=== PATIENT | female | born 1960 | race Caucasian/White ===

== ENCOUNTER 2016-10-01 22:07 | Emergency (ER) | payer OTHER ==
[~2016-10-01] VITALS: Ht 165.1 cm; Wt 96.0 kg
[~2016-10-01 22:07] MED LIST: ASPIRIN325 MG PO; ATENOLOL25 M1 PO; CARDIZEM120 MG PO; CIPRO500 MG PO; COLACE100 MG PO; ESTRADIOL0.5 MG PO; FLAGYL500 MG PO; FLEXERIL10 MG PO; GLUCOPHAGE500 MG PO; HYDROCODON-ACE1 EAC7 PO; LISINOPRIL20 MG PO; LITE COAT ASPI325 M1 PO; METOPROLOL SUCC25 MG PO; NORCO 10/3251 TABLET PO; NORCO 5/3251 TABLET PO; PANTOPRAZOLE SO40 MG PO; PRILOSEC40 MG PO; PRINIVIL20 MG PO; ZESTRIL,PRINIVI20 MG PO; ZOFRAN4 MG PO
[2016-10-01] MEDS ORDERED: METFORMIN HCL500 MG PO (22:42)
[2016-10-02 00:05] VITALS: BP 141/90
[2016-10-02] MEDS ORDERED: FLEXERIL10 MG PO (00:12)
[2016-10-02] MEDS ORDERED: LO-DOSE ASPIRIN81 M1 PO (21:08)
[2016-10-02] MEDS ORDERED: BENGAY GREASEL113 GM TP (21:09)
[2016-10-02] MEDS ORDERED: ALEVE220 MG PO (21:09)
[2016-10-02] MEDS ORDERED: THERMACARE1 EACH TD (21:10)
== END 2016-10-02 00:38 | disposition home or self-care (01) ==
LOC: EME 22:07 → EXP 22:07
DX: M54.41 Lumbago with sciatica, right side (principal); Z88.6 Allergy status to analgesic agent
CPT/HCPCS: 99281; 99284; J1100; J1885

== ENCOUNTER 2016-10-02 16:39 | Observation (INO) | payer OTHER ==
[~2016-10-02] VITALS: Ht 165.1 cm; Wt 97.5 kg
[~2016-10-02 16:39] MED LIST changes: +METFORMIN HCL500 MG PO
[2016-10-02 18:51] LABS: EOSINOPHIL (%) 0.1 % (0-5); HEMATOCRIT 38.8 % (36.0-46.0); IMMATURE GRANULOCYTE (%) 0.4 % (0.0-0.7); IMMATURE GRANULOCYTE COUNT 0.7 K/uL; LYMPHOCYTE COUNT 1.5 K/uL (1.0-2.8); MCH 29.6 PG (29.0-34.0); MCHC 34.8 G/DL (30.0-36.0); MCV 85.1 FL (83-99); MEAN PLAT.VOLUME 9.3 uM^3 (9.5-12.4); MONOCYTE (%) 3.7 % (3-12); MONOCYTE COUNT 0.7 K/uL (0-0.8); NEUTROPHIL (%) 86.9 % (45-76); NEUTROPHIL COUNT 15.2 K/uL (1.8-6.4); PLATELET COUNT 276 K/uL (156-360); RBC DIS.WIDTH-CV 13.4 % (11.8-14.6); RED BLOOD COUNT 4.56 M/uL (3.80-5.20); WHITE BLOOD COUNT 17.5 K/uL (4.1-10.2)
[2016-10-02 19:04] LABS: CHLORIDE 108 mEq/L (99-109); POTASSIUM 4.5 mEq/L (3.7-5.4); SODIUM 141 mEq/L (136-147)
[2016-10-02 19:06] LABS: GLUCOSE 212 mg/dL (70-99)
[2016-10-02 19:07] LABS: ANION GAP 15 MEQ/L (2-14)
[2016-10-02 19:10] LABS: GFR ESTIMATE (CALCULATED) > 59 mL/min/
[2016-10-02 19:11] LABS: UREA NITROGEN (BUN) 23 mg/dL (9-23)
[2016-10-02] MEDS ORDERED: LO-DOSE ASPIRIN81 M1 PO (21:08)
[2016-10-02] MEDS ORDERED: ALEVE220 MG PO (21:09)
[2016-10-02] MEDS ORDERED: BENGAY GREASEL113 GM TP (21:09)
[2016-10-02] MEDS ORDERED: THERMACARE1 EACH TD (21:10)
[2016-10-03] VITALS (7 sets, daily range): BP systolic 103–157; BP diastolic 59–86
[2016-10-03 04:18] LABS: ADD MIUA? YES; BILIRUBIN NEGATIVE; BLOOD TRACE; COLOR YELLOW ((YELLOW)); GLUCOSE (STRIP) 100; KETONES NEGATIVE; LEUKOCYTES SMALL; NITRITE NEGATIVE; PROTEIN (STRIP) NEGATIVE; UROBILINOGEN 0.2 MG/DL (0.2-1.0)
[2016-10-03 04:32] LABS: SPECIFIC GRAVITY 1.094 (1.000-1.030)
[2016-10-03 04:35] LABS: BACTERIA 2+; CASTS NONE SEEN /LPF; CRYSTALS NONE SEEN; EPITHELIAL CELLS 1+; MUCUS NONE SEEN; RED BLOOD CELLS 0-5 /HPF (0-5); UCUL ADDED? YES; WHITE BLOOD CELLS 20-30 /HPF (0-5)
[2016-10-03 07:04] LABS: HEMATOCRIT 38.5 % (36.0-46.0); MCH 28.8 PG (29.0-34.0); MCV 87.3 FL (83-99); MEAN PLAT.VOLUME 9.9 uM^3 (9.5-12.4); PLATELET COUNT 259 K/uL (156-360); RBC DIS.WIDTH-CV 13.8 % (11.8-14.6); RBC DIS.WIDTH-SD 43.5 % (39-53); RED BLOOD COUNT 4.41 M/uL (3.80-5.20)
[2016-10-03 07:21] LABS: ANION GAP 12 MEQ/L (2-14); CHLORIDE 102 MEQ/L (99-109); GFR ESTIMATE (CALCULATED) 54 mL/min/; GLUCOSE 219 mg/dL (70-99); POTASSIUM 4.2 MEQ/L (3.7-5.4); SAMPLE HEMOLYSIS CHECK 0; SAMPLE ICTERIC CHECK 0; SAMPLE LIPEMIA CHECK 0; SODIUM 136 MEQ/L (136-147); UREA NITROGEN (BUN) 28 mg/dL (9-23)
[2016-10-04 04:15] VITALS: BP 96/69
[2016-10-04 09:00] VITALS: BP 130/79
[2016-10-04] MEDS ORDERED: FLEXERIL10 MG PO (09:27)
[2016-10-04] MEDS ORDERED: LIDODERM 5% P1 PATCH TD (09:27)
[2016-10-04] MEDS ORDERED: PREDNISONE10 MG PO (09:27)
[2016-10-04] MEDS ORDERED: HYDROCODON-ACE1 EAC9 PO (09:27)
[2016-10-04 11:36] VITALS: BP 124/62
== END 2016-10-04 11:59 | disposition home or self-care (01) ==
LOC: EME 16:39 → EDOF 22:07 → 5WEST 22:07
PROVIDERS: Emergency Medicine; Hospitalist
DX: M54.41 Lumbago with sciatica, right side (principal); M51.26 Other intervertebral disc displacement, lumbar region; M99.73 Connective tissue and disc stenosis of intervertebral foramina of lumbar region; E11.9 Type 2 diabetes mellitus without complications; I10 Essential (primary) hypertension; I47.1 Supraventricular tachycardia
CPT/HCPCS: 72132; 74177; 80048; 81003; 85025; 85027; 87077; 87086; 87186; 99281; 99285; G0378; J0696; J1100; J1170; J1650; J1885; J3010; J7050

== ENCOUNTER 2017-11-07 22:39 | Emergency (ER) | payer OTHER ==
[~2017-11-07] VITALS: Ht 165.1 cm; Wt 96.1 kg
[~2017-11-07 22:39] MED LIST changes: +ALEVE220 MG PO; +BENGAY GREASEL113 GM TP; +HYDROCODON-ACE1 EAC9 PO; +LIDODERM 5% P1 PATCH TD; +LO-DOSE ASPIRIN81 M1 PO; +PREDNISONE10 MG PO; +THERMACARE1 EACH TD
[2017-11-07 23:45] LABS: HEMOGLOBIN 14.2 G/DL (11.9-15.5); MCHC 33.8 G/DL (30.0-36.0); MCV 88.6 FL (83-99); PLATELET COUNT 310 K/uL (156-360); RBC DIS.WIDTH-SD 42.2 % (39-53); RED BLOOD COUNT 4.74 M/uL (3.80-5.20); WHITE BLOOD COUNT 14.5 K/uL (4.1-10.2)
[2017-11-07 23:54] LABS: ALBUMIN 4.4 g/dL (3.2-4.8); CHLORIDE 104 mEq/L (99-109); POTASSIUM 4.4 mEq/L (3.7-5.4); SODIUM 138 mEq/L (136-147)
[2017-11-07 23:56] LABS: GLUCOSE 162 mg/dL (70-99)
[2017-11-07 23:57] LABS: TOTAL PROTEIN 7.1 g/dL (6.4-8.3)
[2017-11-07 23:58] LABS: TOTAL BILIRUBIN 0.5 mg/dL (0.0-1.0)
[2017-11-08] LABS: ALKALINE PHOSPHATASE 98 IU/L (3-129); CREATININE 0.9 mg/dL (0.6-1.3); GFR ESTIMATE (CALCULATED) > 59 mL/min/
[2017-11-08 00:01] LABS: UREA NITROGEN (BUN) 16 mg/dL (9-23)
[2017-11-08 00:02] LABS: AST (GOT) 23 IU/L (2-34)
[2017-11-08 00:03] LABS: ALT (GPT) 30 IU/L (3-49)
[2017-11-08 00:19] LABS: LIPASE 41 U/L (1.0-51.0)
[2017-11-08 01:58] LABS: APPEARANCE CLEAR ((CLEAR)); BILIRUBIN NEGATIVE; BLOOD MODERATE; COLOR YELLOW ((YELLOW)); GLUCOSE (STRIP) NEGATIVE; KETONES NEGATIVE; LEUKOCYTES MODERATE; NITRITE POSITIVE; PROTEIN (STRIP) NEGATIVE; UROBILINOGEN 0.2 MG/DL (0.2-1.0)
[2017-11-08 02:03] LABS: BACTERIA 1+ /HPF; EPITHELIAL CELLS 1+ /HPF; MUCUS TRACE /LPF; UCUL ADDED? YES
[2017-11-08 02:04] LABS: SPECIFIC GRAVITY > 1.060 (1.000-1.030)
[2017-11-08] MEDS ORDERED: KEFLEX500 MG PO (02:21)
[2017-11-08 02:52] LABS: TROP-I INTERPRETATION NEGATIVE; TROPONIN-I < 0.01 ng/mL (0.0-0.30)
[2017-11-08 02:54] VITALS: BP 171/92
== END 2017-11-08 03:11 | disposition home or self-care (01) ==
LOC: EME 22:39
PROVIDERS: Emergency Medicine
DX: R10.10 Upper abdominal pain, unspecified (principal); N39.0 Urinary tract infection, site not specified; B96.1 Klebsiella pneumoniae [K. pneumoniae] as the cause of diseases classified elsewhere; K57.30 Diverticulosis of large intestine without perforation or abscess without bleeding; K76.0 Fatty (change of) liver, not elsewhere classified; R16.0 Hepatomegaly, not elsewhere classified; I45.4 Nonspecific intraventricular block; R94.31 Abnormal electrocardiogram [ECG] [EKG]; M47.899 Other spondylosis, site unspecified; E11.9 Type 2 diabetes mellitus without complications; Z87.440 Personal history of urinary (tract) infections; Z90.49 Acquired absence of other specified parts of digestive tract; Z90.710 Acquired absence of both cervix and uterus; Z79.82 Long term (current) use of aspirin; Z79.84 Long term (current) use of oral hypoglycemic drugs; Z88.5 Allergy status to narcotic agent; Z88.6 Allergy status to analgesic agent; Z88.8 Allergy status to other drugs, medicaments and biological substances
CPT/HCPCS: 74177; 80053; 81003; 83690; 84484; 85027; 87077; 87086; 87186; 93005; 99281; 99285; J0696; J2270; J2405; J7030